=== PATIENT | female | born 1995 | race Caucasian/White ===

== ENCOUNTER 2020-09-06 12:37 | Emergency (ER) | payer BC, OTHER ==
--- NOTE | 2020-09-06 12:53 | ED Psychosocial ---
General Chief Complaint: Overdose Stated Complaint: SUICIDAL; OVERDOSE Source: patient, EMS Exam Limitations: no limitations (JAZLYN MURRAY) History of Present Illness Date Seen by Provider: Sep 06, 2020 Time Seen by Provider: 12:36 Initial Comments Patient presents ER by EMS from [facility] with chief complaint that about 11:00 this morning, 1-1/2 hours prior to arrival she took one half of a bottle of Vraylar, trazodone and duloxetine in a suicide attempt related to her boyfriend cheating on her. EMS noted her to be somnolent and started IV in her however she was answering questions appropriately. She is with a tearful countenance and states she has no longer suicidal. She has had suicide attempts in the past similarly as well as inpatient placement about 2 years ago at [facility] in [place], [place]. She did not feel it was very helpful to her. She has a history of bipolar disorder and anxiety. She has been on these medications stable dose for about a year now. She follows with psychiatry at [facility] and [facility] for primary care. She is not having any coughing squeezing chest pain shortness of air fever or chills. She has no dysuria. She is about to start her period anytime. She is not on any oral contraceptives. She vomited x1 with pill capsules in it per EMS. Presently she denies any nausea. No other significant medical history. Patient states she took half of a bottle of each however there is only 6 days left of duloxetine 60 mg capsules (6 capsules), 10 days left of Vraylar 6 mg capsules (10 caps) and 6 days left of trazodone 150 mg tablets (6 tabs). She states she has been taking the medications as they were prescribed. (JAZLYN MURRAY) Allergies and Home Medications Allergies Coded Allergies: lamotrigine (Verified Allergy, Unknown, 09/06/20) Patient Home Medication List Home Medication List Reviewed: Yes (JAZLYN MURRAY) Review of Systems Constitutional: No chills, No fever, No malaise EENTM: No ear discharge, No ear pain Respiratory: No cough, No short of breath Cardiovascular: No edema, No Hx of Intervention, No palpitations Gastrointestinal: No abdominal pain, No constipation, No diarrhea, No nausea; vomiting (x1) Genitourinary: No discharge, No dysuria : No Control/STD Prophylaxis: None Musculoskeletal: No back pain, No joint pain Psychiatric/Neurological: See HPI, Depressed, Emotional Problems (JAZLYN MURRAY) All Other Systems Reviewed Negative Unless Noted: Yes (JAZLYN MURRAY) Past [id number] Hx Patient Social History Alcohol Use: Denies Use Recreational Drug Use: No Smoking Status: Current Everyday Smoker Type Used: Cigarettes (JAZLYN MURRAY) Physical Exam Vital Signs - First Documented 09/06/20 12:40 Temp 37.0 Pulse 111 Resp 16 B/P (MAP) 111/66 (81) Pulse Ox 100 (ENYADAVE SO MD) Capillary Refill : (JAZLYN MURRAY) Height, Weight, BMI Height: '" Weight: lbs. oz. kg; BMI Method: General Appearance: WD/WN, no apparent distress HEENT: PERRL/EOMI, pharynx normal (Mildly dry mucosa) Neck: full range of motion, supple, normal inspection Respiratory: lungs clear, normal breath sounds, no respiratory distress, no accessory muscle use Cardiovascular: normal peripheral pulses, regular rate, rhythm Peripheral Pulses: 2+ Dorsalis Pedis (R), 2+ Left Dors-Pedis (L) Gastrointestinal: non tender, soft Extremities: non-tender, normal inspection Neurologic/Psychiatric: alert, oriented x 3, other (Remorseful for her actions, tearful countenance and depressed affect. States she is no longer suicidal and denies any homicidal ideation.) Appearance/Memory: appropriate appearance, no memory impairment Behavior/Eye Contact: cooperative, good eye contact, normal speech Thoughts/Hallucinations: normal thought pattern, no apparent hallucination Skin: normal color, warm/dry (JAZLYN MURRAY) Progress/Results/Core Measures Results/Orders Lab Results Laboratory Tests Test 09/06/20 12:40 09/06/20 12:59 Range/Units White Blood Count 8.3 4.3-11.0 10^3/uL Red Blood Count 4.08 L 4.35-5.85 10^6/uL Hemoglobin 13.2 11.5-16.0 G/DL Hematocrit 39 35-52 % Mean Corpuscular Volume 95 80-99 FL Mean Corpuscular Hemoglobin 32 25-34 PG Mean Corpuscular Hemoglobin Concent 34 32-36 G/DL Red Cell Distribution Width 12.1 10.0-14.5 % Platelet Count 140 130-400 10^3/uL Mean Platelet Volume 12.2 H 7.4-10.4 FL Immature Granulocyte % (Auto) 1 % Neutrophils (%) (Auto) 89 H 42-75 % Lymphocytes (%) (Auto) 7 L 12-44 % Monocytes (%) (Auto) 4 0-12 % Eosinophils (%) (Auto) 0 0-10 % Basophils (%) (Auto) 0 0-10 % Neutrophils # (Auto) 7.4 1.8-7.8 X 10^3 Lymphocytes # (Auto) 0.6 L 1.0-4.0 X 10^3 Monocytes # (Auto) 0.3 0.0-1.0 X 10^3 Eosinophils # (Auto) 0.0 0.0-0.3 10^3/uL Basophils # (Auto) 0.0 0.0-0.1 10^3/uL Immature Granulocyte # (Auto) 0.0 0.0-0.1 10^3/uL Neutrophils % (Manual) 88 % Lymphocytes % (Manual) 7 % Monocytes % (Manual) 3 % Eosinophils % (Manual) 0 % Basophils % (Manual) 0 % Band Neutrophils 2 % Blood Morphology Comment NORMAL Sodium Level 140 135-145 MMOL/L Potassium Level 4.0 3.6-5.0 MMOL/L Chloride Level 105 98-107 MMOL/L Carbon Dioxide Level 25 21-32 MMOL/L Anion Gap 10 5-14 MMOL/L Blood Urea Nitrogen 12 7-18 MG/DL Creatinine 0.66 0.60-1.30 MG/DL Estimat Glomerular Filtration Rate > 60 BUN/Creatinine Ratio 18 Glucose Level 127 H 70-105 MG/DL Calcium Level 9.1 8.5-10.1 MG/DL Corrected Calcium 8.5-10.1 MG/DL Total Bilirubin 0.7 0.1-1.0 MG/DL Aspartate Amino Transf (AST/SGOT) 20 5-34 U/L Alanine Aminotransferase (ALT/SGPT) 15 0-55 U/L Alkaline Phosphatase 48 40-136 U/L Total Protein 7.2 6.4-8.2 GM/DL Albumin 4.6 H 3.2-4.5 GM/DL Salicylates Level < 0.3 L 5.0-20.0 MG/DL Acetaminophen Level < 10 L 10-30 UG/ML Serum Alcohol < 10 <10 MG/DL Urine Color YELLOW Urine Clarity CLEAR Urine pH 7.0 5-9 Urine Specific [place] 1.015 L 1.016-1.022 Urine Protein NEGATIVE NEGATIVE Urine Glucose (UA) NEGATIVE NEGATIVE Urine Ketones TRACE H NEGATIVE Urine Nitrite NEGATIVE NEGATIVE Urine Bilirubin NEGATIVE NEGATIVE Urine Urobilinogen 0.2 < = 1.0 MG/DL Urine Leukocyte Esterase NEGATIVE NEGATIVE Urine RBC (Auto) NEGATIVE NEGATIVE Urine RBC NONE /HPF Urine WBC 0-2 /HPF Urine Squamous Epithelial Cells 2-5 /HPF Urine Crystals NONE /LPF Urine Bacteria NEGATIVE /HPF Urine Casts NONE /LPF Urine Mucus SMALL H /LPF Urine Culture Indicated NO Urine Test NEGATIVE NEGATIVE Urine Opiates Screen NEGATIVE NEGATIVE Urine Oxycodone Screen NEGATIVE NEGATIVE Urine Methadone Screen NEGATIVE NEGATIVE Urine Propoxyphene Screen NEGATIVE NEGATIVE Urine Barbiturates Screen NEGATIVE NEGATIVE Ur Tricyclic Antidepressants Screen NEGATIVE NEGATIVE Urine Phencyclidine Screen NEGATIVE NEGATIVE Urine Amphetamines Screen NEGATIVE NEGATIVE Urine Methamphetamines Screen NEGATIVE NEGATIVE Urine Benzodiazepines Screen NEGATIVE NEGATIVE Urine Cocaine Screen NEGATIVE NEGATIVE Urine Cannabinoids Screen NEGATIVE NEGATIVE (DAVE ANAYA MD) Medications Given in ED Current Medications Medications Dose Ordered Sig/Richard Route Start Time Stop Time Status Last Admin Dose Admin Lactated Ringer's 1,000 ml @ 0 mls/hr Q0M ONCE IV 09/06/20 13:00 09/06/20 13:01 DC 09/06/20 13:07 0 MLS/HR (DAVE ANAYA MD) Vital Signs/I&O 09/06/20 09/06/20 12:40 15:01 Temp 37.0 Pulse 111 126 124 138 Resp 16 B/P (MAP) 111/66 (81) 118/59 (78) 116/68 (84) 114/71 (85) Pulse Ox 100 (DAVE ANAYA MD) Progress Progress Note #1: Time: 13:06 Progress Note Discussed the case with poison control and based on the possible low-dose of 6 to 10 days worth of these meds versus upwards of half of a bottle of these meds their recommendations are as follows: Repeat EKG in 2 hours. If asymptomatic at 6 hours then pursue psych consult. If worsening symptoms then admit for medical management. Trazodone should expect somnolence and hypotension. Treat with IV fluids. QTC prolongation is of concern. EKG in 2 hours. Cymbalta can cause nausea and vomiting, tachycardia sweating and occasionally agitation which should be treated with benzodiazepines. Expect her to be drowsy. If it causes hypertension there is no need to treat this. Vraylar with toxidromes has few side effects mainly orthostasis and sedation. Can also occasionally cause constipation, diarrhea and blurred vision at normal doses. We started a liter of lactated Ringer's and will repeat a EKG and orthostats in 2 hours. Progress Note #2: Time: 14:59 Progress Note Patient is alert, GCS 15 and no longer somnolent. She has been cooperative, polite and docile. She has a mild tachycardia which is probably due to the overdose of medications. She is not somnolent anymore neither is she agitated. She completed her liter of normal saline and has been up to go to the bathroom 3 times. Her orthostatics are negative. Plan to observe her until 0. We will try and start the ball rolling on a psych evaluation. If she is asymptomatic by 1830 then she would be medically cleared. We have provided her with oral fluids and what snacks and food are available at our stand-alone emergency room. Progress Note #3: Time: 16:23 Progress Note Patient is alert and oriented GCS 15 heart rate of 100 resting comfortably without nausea or pain. She is drinking oral fluids. Provided her with some more juice. Progress Note #4: Time: 18:30 Progress Note Patient still denies suicidality. She is not excited about the prospect of going inpatient psychiatric care because she does not feel that it was helpful last time. We did consult with psychiatry and there is 1 person had her to be screened and then she will be next. At this time she is considered medically cleared as she is asymptomatic. She is still tolerating p.o. (JAZLYN MURRAY) Progress Note #1: Time: 19:11 Progress Note I assumed care from Dr. Murray at shift change. Pending mental health screening. Progress Note #2: Time: 20:44 Progress Note Mental health completed their screening and pt has a safety plan to go home with her Mom and follow up with outpatient clinic. (DAVE ANAYA MD) Initial ECG Impression Date: Sep 06, 2020 Initial ECG Impression Time: 12:45 Initial ECG Rate: 94 Initial ECG Rhythm: Normal Sinus Initial ECG Intervals: QT (466 qtc) Initial ECG Impression: Normal Comment Normal sinus rhythm without clinically relevant ST changes or dysrhythmia EKG : EKG Time: 14:51 Rate: 109 Rhythm: S.Tach Intervals: QT (338/ 456 QTc) ECG Comparisson: Unchanged ECG Impression: Normal Comment Normal sinus tachycardia without prolonged QTC. (JAZLYN MURRAY) Transfer of Care Time: 19:00 Care transferred to: Dr. Anaya (JAZLYN MURRAY) Departure Impression Primary Impression: Drug overdose Qualified Codes: T50.902A - Poisoning by unspecified drugs, medicaments and biological substances, intentional self-harm, initial encounter Additional Impression: Suicide attempt Disposition: 01 HOME, SELF-CARE Condition: Improved Departure-Patient Inst. Decision time for Depature: 20:54 (DAVE ANAYA MD) Referrals: [facility] [place] Patient Instructions: Accidental Overdose, Adult ED, Suicide Prevention Add. Discharge Instructions: Follow safety plan as set out by Mental Health. Do not take medicine or drugs unless prescribed to you and only take them as prescribed. All discharge instructions reviewed with patient and/or family. Voiced understanding. JAZLYN MURRAY Sep 06, 2020 12:53 DAVE ANAYA MD Sep 06, 2020 19:11
[2020-09-06] MEDS ORDERED: LACTATED RINGERS 1,000 ML IV ONE (13:00)
[2020-09-06 13:20] LABS: BACTERIA,URINE NEGATIVE /HPF; BILIRUBIN,URINE NEGATIVE (NEGATIVE); CLARITY,URINE CLEAR; COLOR,URINE YELLOW; GLUCOSE, URINE (UA) NEGATIVE (NEGATIVE); KETONES,URINE TRACE (NEGATIVE); LEUKOCYTE ESTERASE ,URINE NEGATIVE (NEGATIVE); NITRITE,URINE NEGATIVE (NEGATIVE); PROTEIN,URINE NEGATIVE (NEGATIVE); WBC,URINE 0-2 /HPF
[2020-09-06 13:26] LABS: HEMATOCRIT 39 % (35-52); HEMOGLOBIN 13.2 G/DL (11.5-16.0); MEAN CORPUSCULAR HEMOGLOBIN 32 PG (25-34); MEAN CORPUSCULAR HGB CONC 34 G/DL (32-36); MEAN CORPUSCULAR VOLUME 95 FL (80-99); MEAN PLATELET VOLUME 12.2 FL (7.4-10.4); NEUTROPHILS % (AUTO) 89 % (42-75); PLATELET COUNT 140 10^3/uL (130-400); WHITE BLOOD COUNT 8.3 10^3/uL (4.3-11.0)
[2020-09-06 13:27] LABS: BASOPHILS % (AUTO) 0 % (0-10); EOSINOPHILS % (AUTO) 0 % (0-10); LYMPHOCYTES # (AUTO) 0.6 X 10^3 (1.0-4.0); LYMPHOCYTES % (AUTO) 7 % (12-44); MONOCYTES # (AUTO) 0.3 X 10^3 (0.0-1.0); MONOCYTES % (AUTO) 4 % (0-12); NEUTROPHILS # (AUTO) 7.4 X 10^3 (1.8-7.8)
[2020-09-06 13:28] LABS: ALANINE AMINOTRANSFERASE 15 U/L (0-55); ALBUMIN 4.6 GM/DL (3.2-4.5); ALKALINE PHOSPHATASE 48 U/L (40-136); BILIRUBIN,TOTAL 0.7 MG/DL (0.1-1.0); BUN/CREATININE RATIO 18; CALCIUM 9.1 MG/DL (8.5-10.1); CARBON DIOXIDE 25 MMOL/L (21-32); CHLORIDE 105 MMOL/L (98-107); CREATININE SERUM 0.66 MG/DL (0.60-1.30); GFR ESTIMATED > 60; GLUCOSE 127 MG/DL (70-105); SALICYLATE < 0.3 MG/DL (5.0-20.0); SODIUM 140 MMOL/L (135-145); TOTAL PROTEIN 7.2 GM/DL (6.4-8.2)
[2020-09-06 13:29] LABS: ACETAMINOPHEN < 10 UG/ML (10-30)
[2020-09-06 13:33] LABS: AMPHETAMINE SCREEN, URINE NEGATIVE (NEGATIVE); BARBITURATE SCREEN URINE NEGATIVE (NEGATIVE); BENZODIAZEPINES SCREEN URINE NEGATIVE (NEGATIVE); CANNABINOID SCREEN, URINE NEGATIVE (NEGATIVE); COCAINE SCREEN URINE NEGATIVE (NEGATIVE); HCG,QUALITATIVE URINE NEGATIVE (NEGATIVE); METHADONE STAT NEGATIVE (NEGATIVE); METHAMPHETAMINE SCREEN URINE S NEGATIVE (NEGATIVE); OPIATE SCREEN URINE NEGATIVE (NEGATIVE); OXYCODONE STAT NEGATIVE (NEGATIVE); PROPOXYPHENE STAT NEGATIVE (NEGATIVE); TRICYCLIC ANTIDEPRESSANTS SCRE NEGATIVE (NEGATIVE)
[2020-09-06 13:34] LABS: BAND NEUTROPHILS 2 %; BASOPHILS % (MANUAL) 0 %; EOSINOPHILS % (MANUAL) 0 %; LYMPHOCYTES % (MANUAL) 7 %; MONOCYTES % (MANUAL) 3 %; NEUTROPHILS % (MANUAL) 88 %; RBC MORPH NORMAL
[2020-09-06 15:01] VITALS: BP_SYST 114; BP_SYST 116; BP_SYST 118; BP_DIAS 59; BP_DIAS 68; BP_DIAS 71
--- NOTE | 2020-09-06 15:14 | NUR ---
Received call from poison control asking for patient update. Updated on patient condition and given current vitals and ekg results.
--- NOTE | 2020-09-06 18:06 | NUR ---
Called [facility] for after hours screening. Tracking number is [id number]. Face sheet, labs, and notes faxed to [phone]
[2020-09-06 20:57] VITALS: BP 110/64
== END 2020-09-06 21:00 | disposition home or self-care (01) ==
LOC: ER FS 12:39
DX: T43.212A Poisoning by selective serotonin and norepinephrine reuptake inhibitors, intentional self-harm, initial encounter (principal); T14.91XA Suicide attempt, initial encounter; F32.9 Major depressive disorder, single episode, unspecified; F17.210 Nicotine dependence, cigarettes, uncomplicated; Z88.8 Allergy status to other drugs, medicaments and biological substances; X83.8XXA Intentional self-harm by other specified means, initial encounter
CPT/HCPCS: 36415; 80053; 80306; 81000; 84703; 85007; 85027; 93041; 99284; G0480 ×3; 80320; 80329